=== PATIENT | male | born 1975 | race Two or more races ===

== ENCOUNTER 2017-10-02 17:14 | Emergency (ER) | payer OTHER ==
[~2017-10-02] VITALS: Ht 180.3 cm; Wt 123.8 kg
[~2017-10-02 17:14] MED LIST: BENZOTIC15 ML OT; CEFTIN250 MG PO; CIPRO HC OTIC S10 ML OT; CIPRO750 MG PO; CORTISPORIN EAR10 M1 OT; IMODIUM A-D2 MG PO; LEVSIN/SL0.125 MG SL; MEDROL4 MG PO; NABUMETONE750 MG PO; PHENERGAN25 MG PO; PNEU16DI2; ZANTAC300 MG PO
[2017-10-02] MEDS ORDERED: ASPIR 8181 MG (18:19)
[2017-10-02] MEDS ORDERED: TENORMIN25 MG (18:19)
== END 2017-10-02 20:49 | disposition home or self-care (01) ==
LOC: ER 17:14
DX: R51 Headache (principal); R10.84 Generalized abdominal pain

== ENCOUNTER 2018-02-20 15:33 | Emergency (ER) | payer OTHER ==
[~2018-02-20] VITALS: Ht 180.3 cm; Wt 117.0 kg
[~2018-02-20 15:33] MED LIST changes: +ASPIR 8181 MG; +TENORMIN25 MG
== END 2018-02-20 18:50 | disposition home or self-care (01) ==
LOC: ER 15:33
DX: J06.9 Acute upper respiratory infection, unspecified (principal)

== ENCOUNTER 2018-05-21 15:53 | Emergency (ER) | payer OTHER ==
[~2018-05-21] VITALS: Ht 180.3 cm; Wt 108.9 kg
[2018-05-21] MEDS ORDERED: ZYRTEC10 MG PO (16:18)
== END 2018-05-21 17:53 | disposition home or self-care (01) ==
LOC: ER 15:53
DX: H92.02 Otalgia, left ear (principal)

== ENCOUNTER 2022-03-15 10:12 | Emergency (ER) | payer OTHER ==
[~2022-03-15] VITALS: Ht 180.3 cm; Wt 117.0 kg
[~2022-03-15 10:12] MED LIST changes: +ZYRTEC10 MG PO
[2022-03-15] MEDS ORDERED: ZESTRIL2.5 MG (10:43)
== END 2022-03-15 16:06 | disposition home or self-care (01) ==
LOC: ER 10:12
DX: N50.812 Left testicular pain (principal); I10 Essential (primary) hypertension; J45.909 Unspecified asthma, uncomplicated; G47.30 Sleep apnea, unspecified

== ENCOUNTER 2024-12-19 04:17 | Emergency (ER) | payer OTHER ==
[~2024-12-19] VITALS: Ht 180.3 cm; Wt 108.0 kg
[~2024-12-19 04:17] MED LIST changes: +ZESTRIL2.5 MG
[2024-12-19] MEDS ORDERED: ZYRTEC10 M3 (04:34)
[2024-12-19] MEDS ORDERED: ONDANSETRON HCL 2 MG/ML VIAL IV STA (04:49)
[2024-12-19] MEDS ORDERED: MORPHINE SULFATE 4 MG/ML VIAL IV STA (04:49)
[2024-12-19] MEDS ORDERED: ONDANSETRON HCL 2 MG/ML VIAL ONE (05:28)
[2024-12-19] MEDS ORDERED: KETOROLAC TROMETHAMINE 30 MG VIAL IV STA (06:15)
[2024-12-19] MEDS ORDERED: KETOROLAC TROMETHAMINE 30 MG VIAL ONE (06:23)
[2024-12-19] MEDS ORDERED: DOLOGESIC-DF 51 EACH PO (07:31)
== END 2024-12-19 08:07 ==
LOC: ER 04:20
DX: G43.909 Migraine, unspecified, not intractable, without status migrainosus (principal); I10 Essential (primary) hypertension